=== PATIENT | female | born 1980 | race Caucasian/White ===

== ENCOUNTER 2022-08-24 18:02 | Emergency (ER) | payer OTHER ==
[~2022-08-24] VITALS: Ht 157.5 cm; Wt 54.4 kg
[2022-08-24] MEDS ORDERED: ONDANSETRON 4 MG/2 ML VIAL ONE (18:23)
[2022-08-24] MEDS ORDERED: IV NORMAL SALINE 500 ML BAG IV ONE (18:30)
[2022-08-24] MEDS ORDERED: ONDANSETRON 4 MG/2 ML VIAL IV ONE ×2 (18:30)
[2022-08-24] MEDS ORDERED: HYDROMORPHONE 1 MG/1 ML DISP.SYRIN IV ONE (18:45)
[2022-08-24] MEDS ORDERED: IV NS 1000 ML 1,000 ML IV ONE (18:45)
[2022-08-24] MEDS ORDERED: PROCHLORPERAZINE EDISYLATE 10 MG/2 ML VIAL IV ONE (18:45)
[2022-08-24 19:02] LABS: HEMATOCRIT 40.7 % (31.2-41.9); MEAN CORPUSCULAR HEMOGLOBIN 26.5 uug (24.7-32.8); MEAN CORPUSCULAR VOLUME 80.5 fL (75.5-95.3); PLATELET COUNT (AUTO) 347 K/uL (179-408)
[2022-08-24 19:10] LABS: CREATININE 0.7 mg/dL (0.6-1.3); POTASSIUM 3.5 mmol/L (3.5-5.1)
[2022-08-24] MEDS ORDERED: HYDROMORPHONE 1 MG/1 ML DISP.SYRIN ONE (19:13)
[2022-08-24] MEDS ORDERED: PROCHLORPERAZINE EDISYLATE 10 MG/2 ML VIAL ONE (19:13)
--- NOTE | 2022-08-24 19:15 | NUR ---
change of shift report from Alie MONDRAGON
[2022-08-24 19:26] LABS: BILIRUBIN,TOTAL 0.5 mg/dL (0.2-1.0); TOTAL PROTEIN, SERUM 7.2 g/dL (6.4-8.2)
[2022-08-24] MEDS ORDERED: ONDA4TAB5 PO (20:28)
[2022-08-24] MEDS ORDERED: RABE20TA18 PO (20:28)
[2022-08-24] MEDS ORDERED: OXYC-128 PO (20:28)
[2022-08-24] MEDS ORDERED: METR500T PO (20:28)
[2022-08-24] MEDS ORDERED: BISM262T18 PO (20:28)
[2022-08-24] MEDS ORDERED: TETR-66 PO (20:28)
--- NOTE | 2022-08-24 20:51 | NUR ---
Patient discharged to home in stable condition. Written and verbal after care instructions given. Patient verbalizes understanding of instructions. Stressed follow up or return to ER for worsening s/s. Patient is a/ox4, NAD noted. Patient is able to walk with steady gait. Patient is accompanied by her
--- NOTE | 2022-08-24 20:53 | NUR ---
Patient went back to ER. c/o dizziness and too weak to walk.
--- NOTE | 2022-08-24 22:00 | NUR ---
Patient stated she's feeling better and ready to be discharged
--- NOTE | 2022-08-24 22:02 | NUR ---
Patient discharged to home in stable condition. Written and verbal after care instructions given. Patient verbalizes understanding of instructions. Stressed follow up or return to ER for worsening s/s. Patient is a/ox4, NAD noted. Patient is able to walk with steady gait
[2022-08-24 22:15] VITALS: BP 108/67
== END 2022-08-24 22:15 | disposition home or self-care (01) ==
LOC: ER 18:05 → EDBD 18:05 → ER 22:15
DX: R55 Syncope and collapse (principal); K29.00 Acute gastritis without bleeding
CPT/HCPCS: 99285; 96374; 76705; 96375; 96361; 80053; 83880; 83735; 85025; 84484; 36415; 93005; J2405; J0780; J1170; J7040; A4663